=== PATIENT | female | born 1980 | race Caucasian/White ===

== ENCOUNTER 2022-10-09 18:43 | Observation (INO) | payer OTHER, SELFPAY ==
[2022-10-09] VITALS (7 sets, daily range): BP systolic 129–169; BP diastolic 95–108; PULSE 86–96; RESP 16–19; TEMP 36.7; O2SAT 95–97; BMI 30.1
[2022-10-09 19:29] LABS: Basophils # 0.1 10^3/uL (0.0-0.1); Basophils % 0.3 %; Eosinophils # 0.3 10^3/uL (0.0-0.8); Eosinophils % 1.1 %; Hematocrit 42.9 % (37.0-47.0); Hemoglobin 14.5 g/dL (11.5-15.3); Lymphocytes # 1.9 10^3/uL (0.8-4.8); Lymphocytes % 7.9 %; Mean Corpuscular HGB Conc 33.8 g/dL (30.0-36.0); Mean Corpuscular Hemoglobin 30.1 pg (28.0-34.0); Mean Platelet Volume 10.4 fL (7.4-10.4); Monocytes # 1.6 10^3/uL (0.2-0.9); Monocytes % 6.8 %; Neutrophils % 83.3 %; Nucleated Red Blood Cells % 0 %; Platelet Count 312 10^3/cmm (130-400); Red Blood Count 4.82 10^6/uL (4.1-5.3); Red Cell Distribution Width 12.8 % (12.1-15.1); White Blood Count 23.4 10^3/uL (4.0-10.0)
[2022-10-09 19:43] LABS: HCG, Serum Qual Negative (Negative)
[2022-10-09 19:49] LABS: Alanine Aminotransferase 18 U/L (0-33); Albumin Level 4.2 g/dL (3.5-5.2); Alkaline Phosphatase 78 U/L (35-105); Anion Gap 18.9 (5-19); Aspartate Amino Transferase 14 U/L (0-32); Blood Urea Nitrogen 8 mg/dL (6-20); Carbon Dioxide 19 mmol/L (22-29); Chloride 100 mmol/L (98-107); Globulin 3.7 g/dL (1.3-4.6); Glucose 112 mg/dL (65-115); Lipase 36 U/L (13-60); Osmolality Calculated 277 mOsm/kg (285-295); Potassium 3.9 mmol/L (3.5-5.1); Sodium 134 mmol/L (136-145); Total Bilirubin 0.3 mg/dL (0.15-1.2); Total Protein 7.9 g/dL (6.6-8.7)
--- NOTE | 2022-10-09 20:36 | W.ED.ABDPA2 ---
HPI - Abdominal Pain General: Chief Complaint: Abdominal Pain Stated Complaint: ABD Pain Time Seen by Provider: 10/09/22 20:35 History of Present Illness: 42-year-old lady presented the emergency department for abdominal pain with nausea and vomiting. Onset of symptoms acute 2 days ago without known specific provoking event. Severe epigastric pain. Nonbilious nonbloody emesis. Has had a bowel movement. Overall course of symptoms is worsened. No other specific changes in health, exacerbating, or alleviating factors identified. Does have a history of x3 and some sort of surgery for a bowel blockage and a hernia repair Onset (ago): day(s) Location: Epigastric Exacerbating factors: eating, vomiting and movement Review of Systems General: Reports: 10 or more systems reviewed and unremarkable except in HPI and below PFSH ED PFSH: Medical History Hepatitis C Hyperlipidemia Surgical History History of History of hernia repair Family History Other Cancer Social History Smoking and tobacco status: current every day smoker Alcohol intake: current Alcohol intake frequency: 0-2 Drinks per Day Substance/Drug Use: former Physical Exam Const: COMMON NORMALS: alert GENERAL APPEARANCE: cooperative and well developed HENMT: COMMON NORMALS: normocephalic and atraumatic HEAD & SCALP: normocephalic and atraumatic Eye: COMMON NORMALS: conjunctivae normal CONJUNCTIVA: Yes conjunctivae normal SCLERA: sclerae normal Neck/C-Spine: COMMON NORMALS: supple GENERAL: Yes trachea midline Resp: COMMON NORMALS: normal respiratory effort and clear to auscultation bilaterally EFFORT & INSPECTION: Yes able to speak in complete sentences AUSCULTATION: clear to auscultation bilaterally Cardio: COMMON NORMALS: regular rate and regular rhythm RATE: regular rate RHYTHM: regular rhythm GI: COMMON NORMALS: Soft to palpation PALPATION: Yes Soft to palpation, Yes Tenderness to palpation present (GI), No Guarding due to palpation present (GI) and No Rigid due to palpation Extremity: GENERAL: Yes normal exam except as noted and No edema Neuro: COMMON NORMALS: moves all extremities SENSORIUM/ORIENTATION: Yes alert and No Orientation impaired Psych: COMMON NORMALS: mental status grossly normal and Normal thought process present THOUGHT PROCESS: Normal thought process present Course Vital Signs: Vital signs: Vital Signs Temperature 98.3 F 10/11/22 13:22 Pulse Rate 76 10/11/22 13:22 Respiratory Rate 15 10/11/22 13:22 Blood Pressure 133/83 10/11/22 13:22 Pulse Oximetry 95 10/11/22 13:22 Oxygen Delivery Me thod Room Air 10/11/22 11:53 MDM - Abdominal Pain Medical Decision Making 42-year-old lady presenting to the emergency department for evaluation of abdominal pain with associated GI symptoms. Nontoxic appearance. Abdominal tenderness without evidence of acute surgical abdomen. Labs notable for leukocytosis, normal hemoglobin and platelet count. Metabolic panel with mild dehydration. Negative urinalysis. CT demonstrates acute pancreatitis. Incidental findings noted and discussed with patient. Patient treated with multiple rounds of antiemetic and analgesia as well as IV fluids. She has not had satisfactory sustained control of symptoms and therefore requires admission for further treatment of pancreatitis. The results of ED evaluation were discussed with the patient including plan for admission due to requirement for level of care not available if discharged to prevent significant worsening/deterioration. Patient agreeable with plan. Discussed with hospitalist service who was agreeable to admit patient. Medical Records I reviewed the patient's medical records. Lab Data I reviewed the patient's lab results. 10/11/22 05:30 10/11/22 05:30 Labs/Radiology: Radiology Impressions Abdomen/Pelvis CT 10/09/22 20:50 IMPRESSION: 1. Acute pancreatitis. 2. Leiomyomatous uterus. 3. Diverticulosis coli. 4. 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 Gallbladder Ultrasound 10/10/22 00:36 IMPRESSION: 1. No cholelithiasis. Benign shadowing focus in the gallbladder may be a small amount of dependent tumefactive sludge or polyp. There is additional layering sludge also. No gallbladder wall thickening. 2. Normal liver. 3. Enlarged edematous poorly defined pancreas. Corresponds to the CT findings of pancreatitis. Laboratory Results WBC 23.4 10^3/uL (4.0-10.0) H 10/09/22 19:19 RBC 4.82 10^6/uL (4.1-5.3) 10/09/22 19:19 Hgb 14.5 g/dL (11.5-15.3) 10/09/22 19:19 Hct 42.9 % (37.0-47.0) 10/09/22 19:19 MCV 89.0 fl (81-99) 10/09/22 19:19 MCH 30.1 pg (28.0-34.0) 10/09/22 19:19 MCHC 33.8 g/dL (30.0-36.0) 10/09/22 19:19 RDW 12.8 % (12.1-15.1) 10/09/22 19:19 Plt Count 312 10^3/cmm (130-400) 10/09/22 19:19 MPV 10.4 fL (7.4-10.4) 10/09/22 19:19 Neut % (Auto) 83.3 % 10/09/22 19:19 Lymph % (Auto) 7.9 % 10/09/22 19:19 Whiteside % (Auto) 6.8 % 10/09/22 19:19 Eos % (Auto) 1.1 % 10/09/22 19:19 Baso % (Auto) 0.3 % 10/09/22 19:19 Neut # (Auto) 19.50 10^3/uL (1.8-7.7) H 10/09/22 19:19 Lymph # (Auto) 1.9 10^3/uL (0.8-4.8) 10/09/22 19:19 Whiteside # (Auto) 1.6 10^3/uL (0.2-0.9) H 10/09/22 19:19 Eos # (Auto) 0.3 10^3/uL (0.0-0.8) 10/09/22 19:19 Baso # (Auto) 0.1 10^3/uL (0.0-0.1) 10/09/22 19:19 Nucleated RBC % (auto) 0 % 10/09/22 19:19 Nucleated RBCs # 0.0 /100WBC 10/09/22 19:19 Sodium 134 mmol/L (136-145) L 10/09/22 19:19 Potassium 3.9 mmol/L (3.5-5.1) 10/09/22 19:19 Chloride 100 mmol/L (98-107) 10/09/22 19:19 Carbon Dioxide 19 mmol/L (22-29) L 10/09/22 19:19 Anion Gap 18.9 (5-19) 10/09/22 19:19 BUN 8 mg/dL (6-20) 10/09/22 19:19 Creatinine 0.5 mg/dL (0.5-0.9) 10/09/22 19:19 GFR Calculation 134.0 mL/min (90-130) H 10/09/22 19:19 Glucose 112 mg/dL (65-115) 10/09/22 19:19 Calculated Osmolality 277 mOsm/kg (285-295) L 10/09/22 19:19 Calcium 9.0 mg/dL (8.5-10.5) 10/09/22 19:19 Total Bilirubin 0.3 mg/dL (0.15-1.2) 10/09/22 19:19 AST 14 U/L (0-32) 10/09/22 19:19 ALT 18 U/L (0-33) 10/09/22 19:19 Alkaline Phosphatase 78 U/L (35-105) 10/09/22 19:19 Total Protein 7.9 g/dL (6.6-8.7) 10/09/22 19:19 Albumin 4.2 g/dL (3.5-5.2) 10/09/22 19:19 Globulin 3.7 g/dL (1.3-4.6) 10/09/22 19:19 Triglycerides 82 mg/dL (0-150) 10/09/22 19:19 Lipase 36 U/L (13-60) 10/09/22 19:19 HCG, Qual Negative (Negative) 10/09/22 19:19 Urine Color Yellow (Yellow) 10/09/22 20:46 Urine Appearance Clear (CLEAR) 10/09/22 20:46 Urine pH 5 (5-7) 10/09/22 20:46 Ur Specific [place] 1.010 (1.005-1.030) 10/09/22 20:46 Urine Protein Trace (Negative) 10/09/22 20:46 Urine Glucose (UA) Norm (Normal) 10/09/22 20:46 Urine Ketones 2+ (Negative) H 10/09/22 20:46 Urine Blood Neg (Negative) 10/09/22 20:46 Urine Nitrate Negative (Negative) 10/09/22 20:46 Urine Bilirubin Neg (Negative) 10/09/22 20:46 Urine Urobilinogen Neg mg/dL (Negative) 10/09/22 20:46 Ur Leukocyte Esterase Negative (Negative) 10/09/22 20:46 Urine RBC 0-4 /hpf (0-2) H 10/09/22 20:46 Urine WBC None /hpf (0-5) 10/09/22 20:46 Ur Squamous Epith Cells 5-10 /hpf (0-5) H 10/09/22 20:46 Ur Transition Epith Cell 0-4 /hpf 10/09/22 20:46 Amorphous Sediment Not Reportable 10/09/22 20:46 Urine Bacteria Trace /hpf (NONE) 10/09/22 20:46 Urine Mucus 1+ /hpf 10/09/22 20:46 Discharge Plan Discharge Patient Disposition: Admitted As Inpatient Admit Provider: Bimal Cha Clinical Impression: Abdominal pain, Pancreatitis Condition: Stable Discharge Diet: Advance as tolerated Coding Level of Care Code ED [employer] for Panfilo Blevins
--- NOTE | 2022-10-09 20:50 | CTR_ITS ---
PROCEDURE INFORMATION: Exam: CT Abdomen And Pelvis With Contrast Exam date and time: 10/09/2022 10:11 PM Age: 42 years old Clinical indication: Abdominal pain; Epigastric; Prior surgery; Surgery date: 6+ months; Surgery type: Hernia repair, ; Additional info: Epigastric pain, n/v TECHNIQUE: Imaging protocol: Computed tomography of the abdomen and pelvis with contrast. Radiation optimization: All CT scans at this facility use at least one of these dose optimization techniques: automated exposure control; mA and/or kV adjustment per patient size (includes targeted exams where dose is matched to clinical indication); or iterative reconstruction. Contrast material: OMNI 350; Contrast volume: 100 ml; Contrast route: INTRAVENOUS (IV); REPORTING DATA: Count of CT and Cardiac NM exams in prior 12 months: This patient has received 0 known CTs and 0 known cardiac nuclear medicine studies in the 12 months prior to the current study. COMPARISON: No relevant prior studies available. RADIATION DOSE METRICS: Total DLP (mGy-cm): 688.53 FINDINGS: Liver: Normal. No mass. Gallbladder and bile ducts: Normal. No calcified stones. No ductal dilation. Pancreas: Mild peripancreatic fat stranding is appreciated. No pancreatic ductal dilatation. Spleen: Normal. No splenomegaly. Adrenal glands: Normal. No mass. Kidneys and ureters: Multiple subcentimeter round hypodense lesions are present in both kidneys that are too small to characterize, but are likely benign. No hydronephrosis. Stomach and bowel: No intestinal obstruction. Diverticulosis coli is seen, without evidence of diverticulitis. Appendix: Appendix is normal. Intraperitoneal space: Unremarkable. No free air. No significant fluid collection. Vasculature: A small AVM is present in the posterior right lung base. Lymph nodes: Unremarkable. No enlarged lymph nodes. Urinary bladder: Unremarkable as visualized. Reproductive: Uterine fibroids are noted. The ovaries appear normal. Bones/joints: Unremarkable. No acute fracture. Soft tissues: Unremarkable. CT/CT abdomen pelvis w con* [id number] IMPRESSION: 1. Acute pancreatitis. 2. Leiomyomatous uterus. 3. Diverticulosis coli. 4. 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
[2022-10-09 21:03] LABS: Protein Urine Trace (Negative); Urine Appearance Clear (CLEAR); Urine Color Yellow (Yellow); pH Urine 5 (5-7)
[2022-10-09 21:04] LABS: Add Urine Culture? No; Add Urine Microscopic? YES; Bacteria Urine TRACE /hpf; Bilirubin Urine Neg (Negative); Blood Urine Neg (Negative); Glucose Urine UA Norm (Normal); Ketones Urine 2+ (Negative); Leukocyte Esterase Urine Negative (Negative); Mucus Urine 1+ /hpf; Nitrate Urine Negative (Negative); RBC Urine 0-4 /hpf (0-2); Transitional Epi Cells Urine 0-4 /hpf; Urobilinogen Urine Neg (Negative)
[2022-10-09] MEDS: fentaNYL 50 mcg/mL INJ 2mL IVP (21:27)
[2022-10-09] MEDS: ondansetron 2 mg/ML SDV 2 mL 4 MG IVP (21:28)
[2022-10-09] MEDS: iohexol 350 mg/mL 500 mL Btl (per mL) IV (22:10)
[2022-10-09] MEDS: morphine 4 mg/mL SDV 1 mL IVP (22:50)
[2022-10-09] MEDS: sodium chloride 0.9% 1,000 ML 999 ML IV (23:09)
--- NOTE | 2022-10-09 23:28 | P.HP_ITS ---
Providers/Chief Complaint Admitting Physician: Bimal Cha MD Chief Complaint: ABD Pain History of Present Illness Dulce Sawant is a 42 year old female presenting to the emergency department with intractable nausea and vomiting for the last several days. She states it started yesterday morning. She has vomited numerous times, usually consisting of yellowish emesis. She has not been able to eat or drink. She has not had any diarrhea. There has been no blood in her stool or black or tarry stools. She has developed epigastric pain. She reports this happened about 3 months ago, but lasted only a short time and went away. 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 She states she was cured of hepatitis C after treatment in July. She relates she has known high cholesterol but is trying diet to lower her cholesterol. No history of fever. Sometimes uses marijuana but not in the last 5 days. Review of Systems General: Reports: 10 or more systems reviewed and unremarkable except in HPI and below Card: Denies: chest pain Resp: Denies: dyspnea GI: Reports: abdominal pain, nausea and vomiting; Denies: hematemesis, hematochezia or melena Medications/Allergies Allergies Allergy/AdvReac Type Severity Reaction Status Date / Time No Known Allergies Allergy Verified 10/09/22 23:31 PFSH Acute PFSH: Medical History (Updated 10/09/22 @ 23:54 by Bimal Cha MD) Hepatitis C Hyperlipidemia Surgical History (Updated 10/09/22 @ 23:49 by Bimal Cha MD) History of History of hernia repair Family History (Updated 10/09/22 @ 23:49 by Bimal Cha MD) Other Cancer Social History (Updated 10/09/22 @ 23:50 by Bimal Cha MD) Smoking and tobacco status: current every day smoker Alcohol intake: current Alcohol intake frequency: 0-2 Drinks per Day Substance/Drug Use: former Vitals/I&O/Wt Last Vital Signs Temp 98.1 F 10/09/22 18:57 Pulse 96 10/09/22 22:30 Resp 18 10/09/22 22:50 BP 141/100 10/09/22 22:30 Pulse Ox 97 10/09/22 22:30 O2 Del Method Room Air 10/09/22 22:30 Weight last 48 hrs Weight 77.111 kg Physical Exam Narrative: General exam is a white female, no distress, but complaining of epigastric pain HEENT: Atraumatic normocephalic. Oropharynx clear Neck is supple no lymphadenopathy or thyromegaly Cardiovascular regular rate and rhythm without murmur Lungs clear no wheezing or crackles Abdomen is soft. Tenderness is noted in the epigastric area. No obvious organomegaly. exam is deferred Extremities no cyanosis, edema, cap refill brisk Skin no rash Neuro no obvious focal deficits. Data 10/09/22 19:19 10/09/22 19:19 Other Labs: Liver function tests are normal. Lipase is 36. hCG is negative. Calcium, albumin are normal. Urinalysis 0-4 reds, no white blood cells Abdomen pelvis CT demonstrates small AVM right lung base, pancreas stranding consistent with acute pancreatitis, diverticulosis. I reviewed this as well. A&P Assessment and plan (1) Intractable vomiting: Patient has intractable vomiting. She has not been able to keep food and fluids down. Etiology is uncertain. CT suggest pancreatitis but lipase is normal. Other etiology could be gastritis. She has not been using anti-inflammatories. Initiate Protonix 40 mg IV twice daily Nausea control with Zofran Hydration N.p.o. for now Triglyceride level has been checked and normal No reason to repeat lipase, unless she does not clinically improve Observation at this time As she has past history of similar episode, check gallbladder ultrasound (2) Abdominal pain: See above Plan Past history of drug use Past history of hepatitis C, completing treatment Full code Low risk for DVT, no prophylaxis Attestations Medical Necessity Statement*: Will require less than 2 midnight stay for evaluation and treatment of intra ctable nausea and vomiting Diagnoses Intractable vomiting R11.10 Abdominal pain R10.9 Time Spent (min) 35
[2022-10-09] MEDS: pantoprazole 40 mg SDV IVP (23:29)
[2022-10-09 23:30] LABS: Triglycerides 82 mg/dL (0-150)
[2022-10-10] VITALS (12 sets, daily range): BP systolic 131–159; BP diastolic 75–93; PULSE 84–102; RESP 13–18; TEMP 36.4–37.6; O2SAT 93–97
--- NOTE | 2022-10-10 00:36 | US_ITS ---
WS: [id number] RIGHT UPPER QUADRANT ULTRASOUND HISTORY: Nausea and vomiting. Afebrile. History of pancreatitis. COMPARISON: 10/09/2022, 11/14/2010 Liver: 18.6 cm in length. Normal size liver and echogenicity. No bile duct dilatation or mass. Portal Vein: Normal hepatopetal flow with monophasic waveform. Gallbladder: Mildly distended gallbladder. There is a small echogenic focus which may be polyp or zari efactive sludge in the dependent gallbladder. There is also small amount of layering sludge. No stone s. No gallbladder wall thickening. CBD: 0.6 cm Pancreas: Pancreas is enlarged and edematous and poorly visualized. This corresponds to the findings on the recent CT. Right kidney: 12.1 cm in length. Normal size and echogenicity. No hydronephrosis or mass. Aorta and IVC: Unremarkable abdominal aorta and IVC. No ascites. US/US gall bladder [id number] IMPRESSION: 1. No cholelithiasis. Benign shadowing focus in the gallbladder may be a small amount of dependent tumefactive sludge or polyp. There is additional layering sludge also. No gallbladder wall thickening. 2. Normal liver. 3. Enlarged edematous poorly defined pancreas. Corresponds to the CT findings of pancreatitis.
[2022-10-10] MEDS: sodium chloride 0.9% 1,000 ML 125 ML IV ×3 (00:43→18:02)
[2022-10-10] MEDS: morphine 4 mg/mL SDV 1 mL 2 MG IVP ×6 (01:54→23:45)
[2022-10-10 05:34] LABS: Basophils # 0.1 10^3/uL (0.0-0.1); Basophils % 0.3 %; Eosinophils # 0.4 10^3/uL (0.0-0.8); Eosinophils % 1.7 %; Hematocrit 38.6 % (37.0-47.0); Hemoglobin 13.2 g/dL (11.5-15.3); Lymphocytes # 1.6 10^3/uL (0.8-4.8); Lymphocytes % 7.4 %; Mean Corpuscular HGB Conc 34.2 g/dL (30.0-36.0); Mean Corpuscular Volume 90.6 fl (81-99); Mean Platelet Volume 10.7 fL (7.4-10.4); Monocytes # 1.8 10^3/uL (0.2-0.9); Monocytes % 8.1 %; Neutrophils # 17.73 10^3/uL (1.8-7.7); Neutrophils % 81.6 %; Nucleated Red Blood Cells % 0 %; Platelet Count 279 10^3/cmm (130-400); Red Blood Count 4.26 10^6/uL (4.1-5.3); White Blood Count 21.7 10^3/uL (4.0-10.0)
[2022-10-10 05:57] LABS: Alanine Aminotransferase 15 U/L (0-33); Albumin Level 3.8 g/dL (3.5-5.2); Alkaline Phosphatase 83 U/L (35-105); Aspartate Amino Transferase 11 U/L (0-32); Blood Urea Nitrogen 6 mg/dL (6-20); Carbon Dioxide 18 mmol/L (22-29); Chloride 102 mmol/L (98-107); Globulin 2.7 g/dL (1.3-4.6); Glucose 82 mg/dL (65-115); Magnesium 2.1 mg/dL (1.7-2.3); Osmolality Calculated 279 mOsm/kg (285-295); Sodium 136 mmol/L (136-145); Total Bilirubin 0.4 mg/dL (0.15-1.2); Total Protein 6.5 g/dL (6.6-8.7)
--- NOTE | 2022-10-10 08:42 | PC.PHAR ---
pt states she takes no prescription medication-pt states she finished her epclusa 400-100mg before july ext shows last filled 04/05/22 28d/s-
[2022-10-10] MEDS: pantoprazole 40 mg SDV IVP ×2 (10:13→23:45)
[2022-10-10] MEDS: ondansetron 2 mg/ML SDV 2 mL 4 MG IVP (18:12)
--- NOTE | 2022-10-10 19:19 | P.PN_ITS ---
Subjective Subjective: She still having upper abdominal pain. Some nausea. Is feeling hungry, however, and would like to try some small amounts of clears. Denies any NSAID use. Does not drink alcohol. Discussed with her and family results of lab work. Results of CT. Vitals/I&O/Wt Last Vital Signs Temp 98.4 F 10/10/22 16:00 Pulse 93 10/10/22 16:00 Resp 14 10/10/22 16:00 BP 136/78 10/10/22 16:00 Pulse Ox 96 10/10/22 16:00 O2 Del Method Room Air 10/10/22 16:00 10/10/22 10/10/22 10/10/22 06:59 14:59 22:59 Intake Total 1000 / 1000 1000 / 1000 1105.417 / 2105.417 Balance 1000 / 1000 1000 / 1000 1105.417 / 2105.417 Weight last 48 hrs Weight 77.111 kg Physical Exam Const: COMMON NORMALS: patient oriented x3 and alert GENERAL APPEARANCE: cooperative ORIENTATION/CONSCIOUSNESS: Yes awake HENMT: COMMON NORMALS: oropharynx normal Neck/C-Spine: COMMON NORMALS: no JVD Resp: COMMON NORMALS: normal respiratory effort and clear to auscultation bilaterally AUSCULTATION: clear to auscultation bilaterally Cardio: COMMON NORMALS: no JVD, regular rhythm, S1 normal heart sound present, S2 normal heart sound present and No murmurs present (Cardio) RHYTHM: regular rhythm HEART SOUNDS: S1 normal heart sound present and S2 normal heart sound present GI: COMMON NORMALS: Normal to inspection, nondistended, normoactive bowel sounds present and Soft to palpation PALPATION: Yes Soft to palpation and Yes Tenderness to palpation present (GI) (Upper abdomen) Extremity: COMMON NORMALS: no joint enlargement and no pedal edema Neuro: COMMON NORMALS: patient oriented x3 and moves all extremities SENSORIUM/ORIENTATION: Yes alert Skin: COMMON NORMALS: no rashes or lesions noted GENERAL SKIN EXAM: no rashes or lesions noted Data 10/10/22 04:31 10/10/22 04:31 A&P Assessment and plan (1) Intractable vomiting: Suspected pancreatitis, possibly recurrent given additional episode 3 months ago. Lipase not elevated. Unclear if episodes of recurrent very fast in the past. She did also have some diarrhea last week as well. Not sure if burned- out pancreas. No obvious trigger. Noted to some sludge in the gallbladder, discussed with her and her family, possibly some passed sludge as the trigger, will benefit from follow-up for additional assessment. Otherwise rarely drinks any alcohol, triglycerides noted WNL, calcium WNL. Discussed consideration may be given to other etiology, autoimmune, should follow-up with GI. Consider follow-up with surgery with regards to biliary sludge. She still having pain, but would like to try some oral intake. Discussed caution. Add clear liquid. Continues to require IV morphine. Continue antiemetic as needed. Still noted leukocytosis 21.7. Suspected related to inflammation of pancreatitis. Follow-up CBC. Otherwise liver parameters WNL. T. bili normal. Renal function, electrolytes including magnesium WNL. iv Hydration Continue observation at this time Discussed with case packer and sealer. She is from out of town, normally resides in [place]. States will have access to gastroenterology there and intends to follow-up. (2) Abdominal pain: See above Plan Past history of drug use Past history of hepatitis C, completing treatment Full code Low risk for DVT, no prophylaxis Attestations Medical Necessity Statement*: Continue hospitalization for assessment management of acute pancreatitis with severe pain requiring IV pain medicine, lack of oral intake. Diagnoses Intractable vomiting R11.10 Abdominal pain R10.9
[2022-10-10] MEDS: methocarbamol 500 mg Tablet PO (22:23)
[2022-10-11] VITALS: BP 139/71; PULSE 90; RESP 17; TEMP 37; O2SAT 97
[2022-10-11] MEDS: methocarbamol 500 mg Tablet PO ×2 (02:30→10:41)
[2022-10-11] MEDS: sodium chloride 0.9% 1,000 ML 125 ML IV (02:31)
[2022-10-11 04:00] VITALS: BP 156/85; PULSE 87; RESP 16; TEMP 37.2; O2SAT 96
[2022-10-11 05:38] LABS: Basophils # 0.1 10^3/uL (0.0-0.1); Basophils % 0.3 %; Eosinophils # 0.6 10^3/uL (0.0-0.8); Hematocrit 37.5 % (37.0-47.0); Hemoglobin 12.1 g/dL (11.5-15.3); Lymphocytes # 2.2 10^3/uL (0.8-4.8); Lymphocytes % 14.8 %; Mean Corpuscular HGB Conc 32.3 g/dL (30.0-36.0); Mean Corpuscular Hemoglobin 29.6 pg (28.0-34.0); Mean Corpuscular Volume 91.7 fl (81-99); Mean Platelet Volume 10.5 fL (7.4-10.4); Monocytes # 1.3 10^3/uL (0.2-0.9); Monocytes % 8.9 %; Neutrophils # 10.78 10^3/uL (1.8-7.7); Neutrophils % 71.5 %; Nucleated Red Blood Cells % 0 %; Platelet Count 277 10^3/cmm (130-400); Red Blood Count 4.09 10^6/uL (4.1-5.3); Red Cell Distribution Width 12.7 % (12.1-15.1); White Blood Count 15.1 10^3/uL (4.0-10.0)
[2022-10-11] MEDS: HYDROcodone-acetaminophen 5-325 mg Tablet 1 TAB PO (06:33)
[2022-10-11 06:54] LABS: Alanine Aminotransferase 10 U/L (0-33); Albumin Level 3.6 g/dL (3.5-5.2); Alkaline Phosphatase 77 U/L (35-105); Anion Gap 18.3 (5-19); Aspartate Amino Transferase 10 U/L (0-32); Blood Urea Nitrogen 5 mg/dL (6-20); Calcium 8.1 mg/dL (8.5-10.5); Carbon Dioxide 18 mmol/L (22-29); Chloride 102 mmol/L (98-107); Globulin 2.6 g/dL (1.3-4.6); Glomerular Filtration Rate 173.4 mL/min (90-130); Glucose 91 mg/dL (65-115); Lipase 17 U/L (13-60); Osmolality Calculated 275 mOsm/kg (285-295); Potassium 4.3 mmol/L (3.5-5.1); Sodium 134 mmol/L (136-145); Total Bilirubin 0.4 mg/dL (0.15-1.2); Total Protein 6.2 g/dL (6.6-8.7)
[2022-10-11 08:00] VITALS: PULSE 82; RESP 16; TEMP 36.7; O2SAT 96
--- NOTE | 2022-10-11 10:37 | PM.DCS ---
Discharge Providers Date of Admission: 10/10/22 00:00 Date of Discharge: October 11, 2022 Attending Provider at Admission: Bimal Cha MD Attending Provider at Discharge: Ayo Cook Diagnoses at Discharge Discharge Diagnosis (1) Intractable vomiting: Status: Acute (2) Abdominal pain: Status: Acute Reason for Visit Reason for Visit: ABD Pain Hospital Course Hospital Course Pleasant 42-year-old lady with remote history of hepatitis C, remote history of substance use disorder, was admitted for assessment management due to recurrent nausea and vomiting, upper abdominal pain, had a similar episode about 3 months ago which resolved spontaneously, however, at this time it was not getting better, in ER she was found with leukocytosis 23.4, lipase was found normal, however, abdominal CT was suggestive of acute pancreatitis with mild peripancreatic fat stranding no pancreatic duct dilation. Additional findings included leiomyomatous uterus, diverticulosis Machelle. 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 She was additionally started on Protonix. Denies NSAID use. No obvious cause of pancreatitis. Gallbladder ultrasound obtained with noted no cholelithiasis, benign shadowing focus in the gallbladder may be small little dependent tumefactive sludge or polyp. There is additional layering sludge as well. No gallbladder wall thickening. Normal liver. Enlarged edematous poorly defined pancreas. Corresponding to CT findings of pancreatitis. Rarely any EtOH. Counseled on complete abstinence. Triglycerides not elevated. Calcium not elevated. She no longer smokes cigarettes in the last 8 years. As clear cause could not be identified for pancreatitis she is asked to follow-up with gastroenterology. She has called her primary provider in [place] to make an appointment and will be getting a referral to gastroenterology locally. Yesterday pain still severe, requiring IV pain control medication, today she is feeling much better, still some discomfort radiating to her back, but not nearly as bad. She is tolerating clear liquids oral intake. Ambulating. She feels significantly better and comfortable returning home. She knows to seek medical attention in case of worsening. Asks for a muscle relaxer to help her manage residual back pain. Discussed with her prescription for Protonix, follow-up with GI, in case of persistent dyspepsia consideration of upper endoscopic evaluation as well. Physical Exam Narrative: Today she feels much better. Pain pretty much resolved in the upper abdomen, milder pain radiating to the back still there. No further nausea or vomiting. Const: COMMON NORMALS: patient oriented x3 and alert GENERAL APPEARANCE: cooperative ORIENTATION/CONSCIOUSNESS: Yes awake HENMT: COMMON NORMALS: oropharynx normal Neck/C-Spine: COMMON NORMALS: no JVD Resp: COMMON NORMALS: normal respiratory effort and clear to auscultation bilaterally AUSCULTATION: clear to auscultation bilaterally Cardio: COMMON NORMALS: no JVD, regular rhythm, S1 normal heart sound present, S2 normal heart sound present and No murmurs present (Cardio) RHYTHM: regular rhythm HEART SOUNDS: S1 normal heart sound present and S2 normal heart sound present GI: COMMON NORMALS: Normal to inspection, nondistended, normoactive bowel sounds present, Soft to palpation and non-tender (Mild if any abdominal upper abdominal tenderness) PALPATION: Yes Soft to palpation Extremity: COMMON NORMALS: no joint enlargement and no pedal edema Neuro: COMMON NORMALS: patient oriented x3 and moves all extremities SENSORIUM/ORIENTATION: Yes alert Skin: COMMON NORMALS: no rashes or lesions noted GENERAL SKIN EXAM: no rashes or lesions noted Discharge Data Studies Completed and Pending Completed Studies During Hospitalization Category Date Time Status CT abdomen pelvis w con* [id number] Stat Cat Scan 10/09/22 20:50 Completed US gall bladder 96331 Routine Ultrasound 10/10/22 00:36 Completed Pending at discharge Category Date Time Status Complete Blood Count w/Auto AM LABS Lab 10/12/22 04:00 Ordered Complete Blood Count w/Auto AM LABS Lab 10/13/22 04:00 Ordered Comprehensive Metabolic Panel AM LABS Lab 10/12/22 04:00 Ordered Comprehensive Metabolic Panel AM LABS Lab 10/13/22 04:00 Ordered Lipase AM LABS Lab 10/12/22 04:00 Ordered Lipase AM LABS Lab 10/13/22 04:00 Ordered Radiology Impressions Abdomen/Pelvis CT 10/09/22 20:50 IMPRESSION: 1. Acute pancreatitis. 2. Leiomyomatous uterus. 3. Diverticulosis coli. 4. 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 Gallbladder Ultrasound 10/10/22 00:36 IMPRESSION: 1. No cholelithiasis. Benign shadowing focus in the gallbladder may be a small amount of dependent tumefactive sludge or polyp. There is additional layering sludge also. No gallbladder wall thickening. 2. Normal liver. 3. Enlarged edematous poorly defined pancreas. Corresponds to the CT findings of pancreatitis. Laboratory Results WBC 15.1 10^3/uL (4.0-10.0) H 10/11/22 05:30 RBC 4.09 10^6/uL (4.1-5.3) L 10/11/22 05:30 Hgb 12.1 g/dL (11.5-15.3) 10/11/22 05:30 Hct 37.5 % (37.0-47.0) 10/11/22 05:30 MCV 91.7 fl (81-99) 10/11/22 05:30 MCH 29.6 pg (28.0-34.0) 10/11/22 05:30 MCHC 32.3 g/dL (30.0-36.0) D 10/11/22 05:30 RDW 12.7 % (12.1-15.1) 10/11/22 05:30 Plt Count 277 10^3/cmm (130-400) 10/11/22 05:30 MPV 10.5 fL (7.4-10.4) H 10/11/22 05:30 Neut % (Auto) 71.5 % 10/11/22 05:30 Lymph % (Auto) 14.8 % 10/11/22 05:30 Walker % (Auto) 8.9 % 10/11/22 05:30 Eos % (Auto) 4.0 % 10/11/22 05:30 Baso % (Auto) 0.3 % 10/11/22 05:30 Neut # (Auto) 10.78 10^3/uL (1.8-7.7) H 10/11/22 05:30 Lymph # (Auto) 2.2 10^3/uL (0.8-4.8) 10/11/22 05:30 Walker # (Auto) 1.3 10^3/uL (0.2-0.9) H 10/11/22 05:30 Eos # (Auto) 0.6 10^3/uL (0.0-0.8) 10/11/22 05:30 Baso # (Auto) 0.1 10^3/uL (0.0-0.1) 10/11/22 05:30 Nucleated RBC % (auto) 0 % 10/11/22 05:30 Nucleated RBCs # 0.0 /100WBC 10/11/22 05:30 Sodium 134 mmol/L (136-145) L 10/11/22 05:30 Potassium 4.3 mmol/L (3.5-5.1) 10/11/22 05:30 Chloride 102 mmol/L (98-107) 10/11/22 05:30 Carbon Dioxide 18 mmol/L (22-29) L 10/11/22 05:30 Anion Gap 18.3 (5-19) 10/11/22 05:30 BUN 5 mg/dL (6-20) L 10/11/22 05:30 Creatinine 0.4 mg/dL (0.5-0.9) L 10/11/22 05:30 GFR Calculation 173.4 mL/min (90-130) H 10/11/22 05:30 Glucose 91 mg/dL (65-115) 10/11/22 05:30 Calculated Osmolality 275 mOsm/kg (285-295) L 10/11/22 05:30 Calcium 8.1 mg/dL (8.5-10.5) L 10/11/22 05:30 Magnesium 2.1 mg/dL (1.7-2.3) 10/10/22 04:31 Total Bilirubin 0.4 mg/dL (0.15-1.2) 10/11/22 05:30 AST 10 U/L (0-32) 10/11/22 05:30 ALT 10 U/L (0-33) 10/11/22 05:30 Alkaline Phosphatase 77 U/L (35-105) 10/11/22 05:30 Total Protein 6.2 g/dL (6.6-8.7) L 10/11/22 05:30 Albumin 3.6 g/dL (3.5-5.2) 10/11/22 05:30 Globulin 2.6 g/dL (1.3-4.6) 10/11/22 05:30 Triglycerides 82 mg/dL (0-150) 10/09/22 19:19 Lipase 17 U/L (13-60) 10/11/22 05:30 HCG, Qual Negative (Negative) 10/09/22 19:19 Urine Color Yellow (Yellow) 10/09/22 20:46 Urine Appearance Clear (CLEAR) 10/09/22 20:46 Urine pH 5 (5-7) 10/09/22 20:46 Ur Specific Riley 1.010 (1.005-1.030) 10/09/22 20:46 Urine Protein Trace (Negative) 10/09/22 20:46 Urine Glucose (UA) Norm (Normal) 10/09/22 20:46 Urine Ketones 2+ (Negative) H 10/09/22 20:46 Urine Blood Neg (Negative) 10/09/22 20:46 Urine Nitrate Negative (Negative) 10/09/22 20:46 Urine Bilirubin Neg (Negative) 10/09/22 20:46 Urine Urobilinogen Neg mg/dL (Negative) 10/09/22 20:46 Ur Leukocyte Esterase Negative (Negative) 10/09/22 20:46 Urine RBC 0-4 /hpf (0-2) H 10/09/22 20:46 Urine WBC None /hpf (0-5) 10/09/22 20:46 Ur Squamous Epith Cells 5-10 /hpf (0-5) H 10/09/22 20:46 Ur Transition Epith Cell 0-4 /hpf 10/09/22 20:46 Amorphous Sediment Not Reportable 10/09/22 20:46 Urine Bacteria Trace /hpf (NONE) 10/09/22 20:46 Urine Mucus 1+ /hpf 10/09/22 20:46 Vitals Last Vital Signs Temp 98.0 F 10/11/22 08:00 Pulse 82 10/11/22 08:00 Resp 16 10/11/22 08:00 BP 156/85 10/11/22 04:00 Pulse Ox 96 10/11/22 08:00 O2 Del Method Room Air 10/11/22 08:00 Discharge Plan Discharge Patient Disposition: Home Condition: Stable Prescriptions: New methocarbamol 500 mg Tablet 500 mg PO QID PRN (Reason: Muscle Spasms) Qty: 20 0RF pantoprazole 40 mg tablet,delayed release (DR/EC) 40 mg PO DAILY 42 Days Qty: 42 0RF Continued Tylenol Ex Str Rapid Release 500 mg Tablet 2,000 mg PO Q6H PRN (Reason: Pain) Discharge Orders: Discharge Order (Routine); Ordered 10/11/22 Ordered By: Ayo Cook Referrals: Primary, provider [Other] (As per appointment on the second) [facility], in [place] [Other] Discharge Diet: Advance as tolerated Patient Instructions: Methocarbamol (By mouth), Pantoprazole (By mouth), Pancreatitis (GEN) Activity Restrictions/Additional Instructions: Seek medical attention in case of worsening or new concerning symptoms. Follow-up with gastroenterology for additional assessment of pancreatitis without obvious cause, gallbladder sludge, additional consideration of upper endoscopic evaluation. To be safe abstain from any alcohol to help avoid recurrence of pancreatitis. Discharge Attestations Time Spent in Discharge Care*: greater than 30 min Quality Metrics Clinical Quality Measures [ No reported AMI, CVA or VTE this stay] Coding Level of Care Code 74016 Total time (in minutes) for Discharge: 40 Diagnoses Intractable vomiting R11.10 Abdominal pain R10.9
[2022-10-11 11:53] VITALS: BP 133/83; PULSE 76; RESP 15; TEMP 36.8; O2SAT 95
[2022-10-11 13:22] VITALS: BP 133/83; PULSE 76; RESP 15; TEMP 36.8; O2SAT 95
== END 2022-10-11 13:23 | disposition home or self-care (01) ==
LOC: ER 20:49 → MEDSURG 10-10 00:08
PROVIDERS: Emergency Medicine; Admitting Provider Internal Medicine; Emergency Provider Emergency Medicine; Visit Provider Internal Medicine
DX: K85.90 Acute pancreatitis without necrosis or infection, unspecified (principal); Z86.19 Personal history of other infectious and parasitic diseases; F19.11 Other psychoactive substance abuse, in remission; E78.5 Hyperlipidemia, unspecified; Z87.891 Personal history of nicotine dependence
CPT/HCPCS: 36415; 74177; 76705; 80053; 81001; 83690; 83735; 84478; 84703; 85025; 96361; 96374; 96375; 96376; 99285; C9113; G0378; J2270; J2405; J3010; J7030; Q9967